=== PATIENT | female | born 1930 | race Caucasian/White ===

== ENCOUNTER 2017-01-01 19:56 | Inpatient (IN) | payer MEDICARE, OTHER ==
--- NOTE | ~2017-01-01 | HP ---
History And Physical [facility] [address] [place]. [address] NAME: TAN WATSON : 30 STATUS : ADM Hao PAT#: [id number] AGE: 86 ADM/REG DATE : 01/01/17 MR#: [id number] REPORT SERV DATE: 01/02/17 DICTATED BY: ANA PAULA DODSON DATE: 01/01/17 REPORT STATUS : Draft TRANSCRIBED BY: MODEdward DATE: 01/01/17 DATE OF ADMISSION: 01/01/2017 POINT OF ENTRY: [facility] Emergency Department. CHIEF COMPLAINT: Altered mental status. HISTORY OF PRESENT ILLNESS: Ms Watson is an 86-year-old female with a history of atrial fibrillation, not on any anticoagulation, as well as hypertension, peripheral arterial disease, and other medical comorbidities, who is brought to the emergency department today by her family members for altered mental status and concern for possible stroke. History is obtained from the patient's daughter, who is at bedside, as the patient is unable to provide any history secondary to altered mental status and/or aphasia. Daughter states that she saw her mother on Friday when they had a meal together. She regularly has lunch with her mother a few times a week and was actually scheduled to have lunch with her mother on , but had not seen or talked to her for a few days. Daughter got a call from the patient's sister, who had just talked to the patient on the phone, and was concerned that she was having a stroke as she was having difficulty speaking and communicating with her. Daughter and son-in-law went to check on the patient and found her disheveled with evidence of recent fall with bruising of the right upper extremity as well as various abrasions over her bilateral lower extremities and right side. They also found the apartment in unkempt state with some feces and stool on the floor. Although, daughter did say she was able to walk with very minimal assistance onto the EMS stretcher. Initial evaluation in the emergency department is notable for labs otherwise unremarkable except for a mild hypokalemia of 3.3. CT scan of the brain is concerning for a left posterior frontal stroke of about 2 x 2.5 cm of some localized mass effect. She was given a full-strength aspirin and admitted to the Hospitalist Service for further evaluation and management. REVIEW OF SYSTEMS: Unable to be obtained secondary to the patient's dense aphasia. PREVIOUS MEDICAL HISTORY: 1. Peripheral vascular disease and peripheral arterial disease. 2. Atrial fibrillation, not on anticoagulation. 3. Hypertension. 4. Lumbar stenosis. 5. Scoliosis. SURGICAL HISTORY: Thumb trigger finger surgery. ALLERGIES: TO CODEINE AND PENICILLIN. HOME MEDICATIONS: History And Physical [address] [address] NAME: TAN WATSON : 30 STATUS : ADM Hao PAT#: [id number] AGE: 86 ADM/REG DATE : 01/01/17 MR#: [id number] REPORT SERV DATE: 01/02/17 DICTATED BY: ANA PAULA DODSON DATE: 01/01/17 REPORT STATUS : Draft TRANSCRIBED BY: AMADOR DATE: 01/01/17 1. [place] 7.5/325 mg one tablet b.i.d. 2. Toprol-XL 50 mg daily. 3. Ambien 5 mg q.h.s. SOCIAL HISTORY: She is a former smoker, quit about 40 years ago. Denies alcohol. Denies illicits. Currently lives alone, and is still driving. FAMILY MEDICAL HISTORY: Mother with peripheral vascular disease. Father with coronary artery disease. Siblings with coronary artery disease. LABS AND IMAGIN. White count is 11.0, hemoglobin is 14.2, hematocrit is 41.1, and platelet count is 339. INR 1.1. 2. Sodium is 143, potassium is 3.3, chloride is 104, carbon dioxide is 27, BUN is 33, creatinine is 0.65, glucose is 99, calcium is 8.8, magnesium is 2.2, protein is 7.1, albumin is 3.8, bilirubin is 1.0, ALT is 28, AST is 60, and alkaline phosphatase is 85. 3. Urinalysis: Spec gravity is 1.019, trace ketones with no evidence of any infection. 4. EKG per my review shows atrial fibrillation with heart rates in the low 100. No evidence of any acute ischemia or infarction. 5. Chest x-ray per my review shows some hyperinflation with flattened diaphragm. Otherwise, no evidence of any cardiopulmonary abnormality. 6. CT scan of the brain, left posterior frontal lobe hypodensity of approximately 2 x 2.5 cm concerning for cerebrovascular accident, age indeterminate with some localized mass effect with sulci effacement. PHYSICAL EXAMINATION: VITAL SIGNS: Temperature is 98.0 degrees Fahrenheit, pulse is 105, respirations 24, saturating 98% on room air, and blood pressure is 154/79. GENERAL: The patient is awake and alert, in no acute distress. Resting comfortably in bed. She is a very thin and frail elderly female. Daughter is at bedside. HEENT: Atraumatic and normocephalic. Moist mucous membranes. Pupils are equal, round, reactive to light and accommodation. Extraocular eye movements are intact. No scleral icterus. NECK: No jugular venous distention. No carotid bruits. CARDIAC: Irregularly irregular rate and rhythm. No murmurs, rubs, or gallops. Normal S1, S2. LUNGS: Clear to auscultation bilaterally. Decreased breath sounds at bases. ABDOMEN: Soft, nontender, and nondistended. Good bowel sounds. No rebound, guarding, or rigidity. EXTREMITIES: She has a fairly large ecchymosis of her right upper extremity as well as some superficial abrasions and skin tears bilateral lower extremities specifically her right knee as well as right elbow. SKIN: Warm and dry except for noted above. PSYCH: Affect appropriate. NEURO: She is alert and oriented x0 as she is unfortunately unable to tell me her name, where she is at, or the date. She has evidence of both expressive and receptive aphasia. No evidence of any dysarthria at this time. Cranial nerves 2 through 12 are grossly intact. History And Physical [address] [address] NAME: TAN WATSON : 30 STATUS : ADM Hao PAT#: [id number] AGE: 86 ADM/REG DATE : 01/01/17 MR#: [id number] REPORT SERV DATE: 01/02/17 DICTATED BY: ANA PAULA DODSON DATE: 01/01/17 REPORT STATUS : Draft TRANSCRIBED BY: MODEdward DATE: 01/01/17 Strength is 5/5 in bilateral upper and lower extremity. Gait was not assessed. ASSESSMENT AND PLAN: Ms Watson is an 86-year-old female, who was brought to the emergency department for concerns for possible stroke with altered mental status and difficulty communicating, found to have evidence of a left posterior frontal cerebrovascular accident, age indeterminate. PROBLEM LIST: 1. Cerebrovascular accident. 2. Receptive and expressive aphasia. 3. Mechanical fall. 4. Atrial fibrillation, not on anticoagulation. PLAN: 1. Cerebrovascular accident. We will admit the patient to the Hospitalist Service under the Stroke Pathway. She has been started on a full-strength aspirin. We will place her also on high-dose statin. We will order MRI for the morning, Neurology consultation as well as echocardiogram. Given the patient's age and previous medical history, as well as including recent stroke, her CHADS2-VASc score is now 7. I will defer to attending in the morning about discussion about benefits and risks of systemic anticoagulation. 2. Receptive and expressive aphasia. I suspect these are the main components of the patient's cerebrovascular accident. We will check other labs for altered mental status workup including thyroid function studies, ammonia level, vitamin B12, holding sedating medications. 3. Atrial fibrillation, not on anticoagulation. We will place her on a full-strength aspirin given her recent stroke. Again CHADS2-Vasc score is approximately 7 now with recent stroke. We will defer to attending in the morning about discussion of risks and benefits of anticoagulation. 4. DVT prophylaxis. Lovenox subcu. CODE STATUS: The patient wished to be full code. JCB/MODL Ana Paula Dodson MD / [id number] CC: Sudhir Vail M.D.
--- NOTE | ~2017-01-01 | DS ---
Discharge Summary [facility] [address] [place]. [address] NAME: TAN BLAKE : 30 STATUS : ADM IN [facility]#: [id number] AGE: 86 ADM/REG DATE : 01/01/17 MR#: [id number] REPORT SERV DATE: 01/04/17 DICTATED BY: GARCÍA NOVA DATE: 01/04/17 REPORT STATUS : Draft TRANSCRIBED BY: MODL DATE: 01/04/17 ADMISSION DATE: 01/01/2017 DISCHARGE DATE: 01/04/2017 Please refer to yesterday's full discharge summary. The patient did not go to [facility] yesterday as they did not have an open bed. Currently, they do have an open bed, and she will go there today. Her systolics are running in the 160s to 180s, diastolics in the 60s and 70s. So, we will add Norvasc 5 mg daily for blood pressure. Plans and orders are otherwise the same as per the dictation yesterday. I spent 31 minutes today with the patient and with her family and nursing and discharge planning. RSTimbo/AMADOR García Nova M.D. / [id number] CC: Sudhir Vail M.D.
--- NOTE | ~2017-01-01 | DS ---
Discharge Summary [facility] [address] [place]. [address] NAME: TAN BLAKE : 30 STATUS : ADM IN PAT#: [id number] AGE: 86 ADM/REG DATE : 01/01/17 MR#: [id number] REPORT SERV DATE: 01/04/17 DICTATED BY: GARCÍA NOVA DATE: 01/03/17 REPORT STATUS : Draft TRANSCRIBED BY: MODEdward DATE: 01/03/17 ADMISSION DATE: 01/01/2017 DISCHARGE DATE: 01/03/2017 CONSULTANTS: Yolande Mora [facility]- and Say Stapleton MD, Neurology. DISCHARGE DIAGNOSES: 1. 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 2. Paroxysmal atrial fibrillation. 3. Hypertension. 4. Low TSH with normal free T4 suggesting possible euthyroid sick status. 5. Chronic back pain, on opiates. 6. Chronic stable low body weight. HISTORY: This 86-year-old patient of Dr. Lorenzo Jane and commercial front load driver, Dr. Catalan has been still living alone, driving independent. The daughter had lunch with her on [place] and normally sees her or has lunch with her multiple times per week. The patient's sister called her house. She did not seem right on the phone, so they went over and found her disheveled with bruises on her right side and significant difficulty with communication. As a result, she was brought to the emergency room at [facility]. She was indeed noted to have receptive and expressive aphasia problems. Her brain CT in the ER revealed a 2 x 2.5 cm abnormality in the left middle cerebral artery area suggestive of an early infarct. Because of this, she was referred to our team for inpatient care. MRI of the brain revealed a 5 x 4.4 cm acute ischemic stroke, left middle cerebral artery distribution involving the frontoparietal region extending from the cortex, but not associated with any significant shift and no hemorrhagic conversion. There was moderate-to- marked amount of old deep white matter changes. MRA of the brain normal, other than the M3 segment on the left side with obstructive changes consistent with her stroke. MRA of the neck unremarkable. She was noted on EKG on admission to have atrial fibrillation with controlled ventricular response. The family seemed to be aware of it. They were not sure if she had ever been tried on any anticoagulation medicines. They stated that she has been to Dr. Catalan and they thought that the patient had possibly been tried on several medicines that the patient did not want to continue because of dry mouth, but they are not sure about the details of that. We did request records from Dr. Catalan's office, but had not received those yet. We also requested records from her PCP, Dr. Lorenzo Jane and I reviewed his office note from 05/02/2016 and office note from 04/01/2016. In these, I see complaints of dry mouth with medications and several adjustments in medications, but no mention of anticoagulation. There was mention of supraventricular tachycardia only. The patient has a CHADS-VASc score of 6, which is significant, so we feel that she would be a good candidate eventually for anticoagulation, however, because of the large size of her stroke, I decided to go along with the guidelines described in up to date and wait two weeks before initiating any anticoagulation for this patient beyond aspirin. Discharge Summary [address] [place]. [address] NAME: TAN BLAKE : 30 STATUS : ADM IN PAT#: [id number] AGE: 86 ADM/REG DATE : 01/01/17 MR#: [id number] REPORT SERV DATE: 01/04/17 DICTATED BY: GARCÍA NOVA DATE: 01/03/17 REPORT STATUS : Draft TRANSCRIBED BY: AMADOR DATE: 01/03/17 Her echocardiogram here on 01/02/2017 showed left atrial size 4.3 cm, left ventricular ejection fraction 60% to 65%. Otherwise, unremarkable findings. The patient's primary difficulty at this time appears to be a receptive aphasia. She has some expressive aphasia as well and Physical Therapy also felt she would benefit from inpatient rehab. Referral has been made and the patient has been accepted to rehab. We have also talked with the family about this. Family is anticipating that she would not be able to go and live independently when she gets out of rehab, but they are not sure about that watermaster. Looking at other secondary risk factors, her TSH was low at 0.298, but her free T4 was normal. Her A1c was normal at 5.3, not anemic. DISCHARGE MEDICATIONS: Aspirin 162 mg daily; Lipitor 80 mg daily; metoprolol 25 mg b.i.d., hold if pulse less than 55; Tylenol 650 q.4 hours p.r.n. pain. After two weeks if the patient is clinically stable and improving, then she could be considered for Eliquis or other similar anticoagulation to reduce her risk of future embolic strokes. I spent 41 minutes today with the patient and with her family and with discharge planning. LUIS ALBERTOG/MODL García Nova M.D. / [id number] CC: Sudhir Vail M.D. Robert Berglund, M.D. [facility]
--- NOTE | ~2017-01-01 | CN ---
Consultation Report [facility] [address] [place]. [address] NAME: TAN BLAKE : 30 STATUS : ADM Hao PAT#: [id number] AGE: 86 ADM/REG DATE : 01/01/17 MR#: [id number] REPORT SERV DATE: 01/02/17 DICTATED BY: KAYE VERGARA DATE: 01/02/17 REPORT STATUS : Draft TRANSCRIBED BY: MODEdward DATE: 01/02/17 NEUROLOGY CONSULTATION DATE OF CONSULTATION: 01/02/2017 REASON FOR CONSULTATION: Possible stroke. HOSPITALIST: Dr. Tristen Nova. LOW PRESSURE BOILER TENDER: Dr. Darrell Catalan. HISTORY OF PRESENT ILLNESS: The patient is an 86-year-old female, who is unable to provide an adequate history, because of her aphasia. So, most of the history is obtained from the chart and from her daughter. According to the daughter, the patient went out to eat with her on Friday for Easter and she was perfectly fine. The patient called her daughter on Friday to tell her how nice the dinner was and seemed to be herself. On Friday, the patient's sister called her and felt that something was wrong. She called the patient's daughter and the daughter immediately went over to her mother's apartment. The patient answered the door, she was disheveled and confused. Her hair was a mess, the apartment smelled badly, and there was feces on the floor and on the wall. By that time, the EMS had reached the apartment and they were getting the patient ready to bring to the hospital. The patient was having difficulty speaking. She also seemed to be confused. Once the patient arrived to the emergency department, it was obvious that she had expressive aphasia with slight receptive aphasia. There were no obvious deficits in strength or sensation. She was able to walk without much difficulty. It was apparent that she had fallen at home because she had some bruising on the right side of her body. The patient was admitted for further evaluation and treatment. Her initial CT scan did show area of hypodensity in the left MCA territory. PAST MEDICAL HISTORY: Atrial fibrillation (the patient not on anticoagulation), hypertension, peripheral artery disease, peripheral vascular disease, lumbar stenosis, scoliosis, chronic pain, and history of remote tobacco abuse. PAST SURGICAL HISTORY: Trigger finger surgery on the thumb, possible appendectomy and left cataract extraction with lens implantation. HOME MEDICATIONS: [place] 7.5/325 mg b.i.d., Toprol XL 50 mg daily, and Ambien 5 mg at bedtime. ALLERGIES: PENICILLIN AND CODEINE. SOCIAL HISTORY: The patient is a . She lives alone. She has two children. She is a remote smoker. She does not drink or use illicits. Consultation Report [address] [place]. [address] NAME: TAN BLAKE : 30 STATUS : ADM Hao PAT#: [id number] AGE: 86 ADM/REG DATE : 01/01/17 MR#: [id number] REPORT SERV DATE: 01/02/17 DICTATED BY: KAYE VERGARA DATE: 01/02/17 REPORT STATUS : Draft TRANSCRIBED BY: AMADOR DATE: 01/02/17 FAMILY HISTORY: The patient's mother had peripheral vascular disease. Her father had coronary artery disease and her siblings had coronary artery disease. REVIEW OF SYSTEMS: Please refer to HPI for pertinent positives. PHYSICAL EXAMINATION: GENERAL: The patient is an 86-year-old female, who stands 5 foot 3 and weighs 73 pounds, she is afebrile. VITAL SIGNS: Heart rate 104, respiratory rate 16, O2 saturations on room air 97%, blood pressure 137/63. NEURO: The patient is alert. She has difficulty communicating. She has expressive aphasia and at times appears to have some slight receptive aphasia. Most of the time, she seems to comprehend. She can follow simple commands. Pupil on the right is 2 mm and on the left is 4 mm and irregularly shaped. Cranial nerves II through XII are intact. There is no facial droop. Peripheral vision via confrontation appears to be intact, but it is difficult to assess due to her communication problem. She can move all extremities x4. [id number], no ataxia. Upper extremity strength is 4/5. Upper DTRs 3+ and brisk. No reported sensory deficits. Lower extremity strength is 4/5. Lower DTRs 2+ bilaterally. Downgoing toes. I did not get the patient up to ambulate. NECK: No carotid bruits, JVD, or thyromegaly. CHEST: Lung sounds clear. CARDIAC: Irregular irregularity of atrial fibrillation with a grade 2/6 systolic murmur. LABORATORY DATA: CBC normal. BMP relatively normal, but potassium is 3.3. Cholesterol values are elevated. Chest x-ray, no acute changes. Urinalysis negative for UTI. Ammonia level 37. A1c 53. CT of the brain shows a hypodensity in the left MCA territory. NIH stroke scale is 4. ASSESSMENT/PLAN: 1. Acute left middle cerebral artery territory stroke with resultant aphasia (predominantly expressive). The patient's [id number] score is 7. She has been on anticoagulation in the past. The patient will undergo MR imaging. Her imaging will be evaluated prior to placing her back on anticoagulation and also her medical records will be evaluated prior to. Currently, she is on aspirin 325 mg and Lipitor 80 mg, which will be continued. Physical therapy, Occupational therapy, and Speech Therapy will be consulted. Case Management will be consulted for rehab placement. Additional lab work will be checked. 2. Atrial fib/atrial flutter. This will be managed per hospitalist and carry all driver and again anticoagulation will be considered. Thank you again for including us in consultation. We will continue to follow with you. Consultation Report [facility] [id number] [place]. [address] NAME: TAN BLAKE : 30 STATUS : ADM Hao PAT#: [id number] AGE: 86 ADM/REG DATE : 01/01/17 MR#: [id number] REPORT SERV DATE: 01/02/17 DICTATED BY: KAYE VERGARA DATE: 01/02/17 REPORT STATUS : Draft TRANSCRIBED BY: AMADOR DATE: 01/02/17 KORY/AMADOR JOSE Rizzo-APOLINAR / [id number] CC: Sudhir Vail M.D. Robert Berglund, M.D.
[2017-01-01 19:32] LABS: BASOPHILS 0.2 %; BASOPHILS ABSOLUTE 0.02 10/3/uL (0.0-0.16); EOSINOPHILS 0.7 %; EOSINOPHILS ABSOLUTE 0.08 10/3/uL (0.0-0.53); HEMATOCRIT 41.1 % (36.0-48.0); HEMOGLOBIN 14.2 g/dL (12.0-16.0); IMMATURE GRANULOCYTES 0.4 %; IMMATURE GRANULOCYTES ABSOLUTE 0.04 10/3/uL (0.0-0.11); LYMPHOCYTES 12.4 %; LYMPHOCYTES ABSOLUTE 1.37 10/3/uL (0.67-4.30); MEAN CORPUSCULAR VOLUME 89.7 fL (80-100); MEAN PLATELET VOLUME 9.6 fL (9.2-13.0); MONOCYTES 13.5 %; MONOCYTES ABSOLUTE 1.49 10/3/uL (0.21-1.20); NEUTROPHILS 72.8 %; NEUTROPHILS ABSOLUTE 8.01 10/3/uL (2.02-8.40); PLATELET COUNT 339 10/3/uL (150-400); RBC DISTRIBUTION WIDTH 13.8 % (12.0-16.0); RED CELL COUNT 4.58 10/6/uL (4.0-5.6)
[2017-01-01 19:34] LABS: MEAN CORPUS HGB CONC 34.5 g/dL (32.0-36.0)
[2017-01-01 19:35] LABS: ASCORBIC ACID (UR NOT ORDER) NEG (NEG); BILIRUBIN, URINE NEGATIVE (NEG); ER URINALYSIS TAT 0 Hrs 07 Mins; KETONE, URINE TRACE MG/DL (NEG); LEUKOCYTE ESTERASE(NOT OR NEG (NEG); NITRITE (URINE) NEG (NEG); WBC (NOT ORDERED) (RFLEX) 2 (0-5)
[2017-01-01 19:35] LABS: MANUAL DIFF NO %
[2017-01-01 19:41] LABS: INTERNATIONAL NORMAL RATI 1.1 UNITS (-); PROTIME (NOT ORD) 13.6 SEC (12.0-14.5)
[2017-01-01 19:51] LABS: ALBUMIN 3.8 G/DL (3.5-5.0); DIRECT BILIRUBIN 0.3 MG/DL (0.0-0.4); INDIRECT BILIRUBIN(NOT ORDER) 0.7 MG/DL (0.1-0.9); TOTAL PROTEIN 7.1 G/DL (6.0-8.5)
[2017-01-01 19:52] LABS: CALCIUM, SERUM 8.8 MG/DL (8.5-10.4); CHEST PAIN PROFILE TAT 0 Hrs 24 Mins; CHLORIDE, SERUM 104 MMOL/L (96-112); CO2 (CARBON DIOXIDE) 27 MMOL/L (24-34); CREATININE 0.65 MG/DL (0.55-1.02); GFR AFRICAN AMERICAN 93 ML/MIN (>=60); GFR NON AFRICAN AMERICAN 80 ML/MIN (>=60); POTASSIUM, SERUM 3.3 MMOL/L (3.5-5.3); SODIUM, SERUM 143 MMOL/L (135-148); TROPONIN I 0.04 NG/ML (<0.05)
[2017-01-01 19:53] LABS: BUN (BLOOD UREA NITROGEN) 33 MG/DL (6-23); GLUCOSE, SERUM 99 MG/DL (60-99)
[2017-01-01] MEDS ORDERED: NORCO1 TA2 PO (20:28)
[2017-01-01] MEDS ORDERED: AMB5 PO (20:28)
[2017-01-01] MEDS ORDERED: TOPXL50 PO (20:29)
[2017-01-02 04:57] LABS: BASOPHILS 0.5 %; BASOPHILS ABSOLUTE 0.05 10/3/uL (0.0-0.16); HEMATOCRIT 39.3 % (36.0-48.0); HEMOGLOBIN 13.1 g/dL (12.0-16.0); IMMATURE GRANULOCYTES 0.3 %; IMMATURE GRANULOCYTES ABSOLUTE 0.03 10/3/uL (0.0-0.11); LYMPHOCYTES 11.4 %; LYMPHOCYTES ABSOLUTE 1.15 10/3/uL (0.67-4.30); MEAN CORPUS HGB CONC 33.3 g/dL (32.0-36.0); MEAN CORPUSCULAR HEMOGLOB 30.2 pg (26.0-34.0); MEAN CORPUSCULAR VOLUME 90.6 fL (80-100); MEAN PLATELET VOLUME 9.5 fL (9.2-13.0); MONOCYTES ABSOLUTE 1.61 10/3/uL (0.21-1.20); NEUTROPHILS 69.8 %; NEUTROPHILS ABSOLUTE 7.04 10/3/uL (2.02-8.40); PLATELET COUNT 318 10/3/uL (150-400); RBC DISTRIBUTION WIDTH 13.6 % (12.0-16.0); RED CELL COUNT 4.34 10/6/uL (4.0-5.6); WHITE BLOOD CELLS 10.1 10/3/uL (4.5-10.5)
[2017-01-02 04:58] LABS: MANUAL DIFF NO %
[2017-01-02 05:03] LABS: INTERNATIONAL NORMAL RATI 1.1 UNITS (-); PARTIAL THROMBO TIME 25.3 SEC (22.5-37.2)
[2017-01-02 05:43] LABS: CHOL/HDL RATIO(NOT ORDER) 2.8 (0-5); CK-MB 7.9 NG/ML; FREE T4 0.87 NG/DL (0.76-1.46)
[2017-01-02 05:44] LABS: CKMB INDEX (NOT ORD) 1.9; FOLATE 39.2 NG/ML (>5.2); TROPONIN I 0.05 NG/ML (<0.05); ULTRASENSITIVE TSH 0.298 MCIU/ML (0.358-3.740)
[2017-01-02 07:49] LABS: GLYCOHEMOGLOBIN (HbA1c) 5.3 % (4.7-6.1)
[2017-01-02 09:45] LABS: AMPHETAMINES (NOT ORD) NEG (NEG); BARBITURATES (NOT ORDERED NEG (NEG); BENZODIAZEPINES (NOT ORD) NEG (NEG); CANNABINOIDS (THC) NEG (NEG); COCAINE (NOT ORDERED) NEG (NEG); OPIATES NEG (NEG); PHENCYCLIDINE(PCP) NEG (NEG); TRICYCLICS NEG (NEG)
[2017-01-02 12:01] LABS: ALBUMIN 2.9 G/DL (3.5-5.0); CK-MB 7.4 NG/ML; CKMB INDEX (NOT ORD) 2.2; DIRECT BILIRUBIN 0.2 MG/DL (0.0-0.4); INDIRECT BILIRUBIN(NOT ORDER) 0.7 MG/DL (0.1-0.9); TOTAL BILIRUBIN 0.9 MG/DL (0-1.2); TROPONIN I 0.05 NG/ML (<0.05)
[2017-01-02 20:28] LABS: CK-MB 8.3 NG/ML; TROPONIN I 0.04 NG/ML (<0.05)
[2017-01-02 20:29] LABS: CKMB INDEX (NOT ORD) 2.4
== END 2017-01-04 11:54 | DRG 65 ==
LOC: ER 19:56 → 2SO 23:25
PROVIDERS: Emergency Medicine; Hospitalist
DX: I63.412 Cerebral infarction due to embolism of left middle cerebral artery (principal); I48.92 Unspecified atrial flutter; I48.0 Paroxysmal atrial fibrillation; R47.01 Aphasia; I10 Essential (primary) hypertension; M41.9 Scoliosis, unspecified; E87.6 Hypokalemia; I73.9 Peripheral vascular disease, unspecified; M48.06 Spinal stenosis, lumbar region; Z88.0 Allergy status to penicillin; Z88.5 Allergy status to narcotic agent; Z87.891 Personal history of nicotine dependence; Z86.73 Personal history of transient ischemic attack (TIA), and cerebral infarction without residual deficits; Z82.49 Family history of ischemic heart disease and other diseases of the circulatory system; Z98.890 Other specified postprocedural states
CPT/HCPCS: 70450; 70544; 70548; 70551-52; 71010; 80048; 80061; 80076; 80305; 81001; 82140; 82533; 82550; 82553; 82607; 82746; 83036; 83735; 84439; 84443; 84484; 85025; 85610; 85730; 93005; 97116-GP; 97162-GP; 99285; A9270-GY; A9577; C8929; G8978-CK-GP; G8979-CJ-GP; J3486; Q9957